=== PATIENT | female | born 1985 | race Caucasian/White ===

== ENCOUNTER 2017-08-22 06:58 | Emergency (ER) | payer OTHER, MEDICAID ==
[~2017-08-22] VITALS: Ht 162.6 cm; Wt 54.4 kg
[~2017-08-22 06:58] MED LIST: ACETAMINOPHEN-1 EAC1 PO; ACYCLOVIR 400400 M1 PO; ALBUTEROL INHAL17 GM IH; BENTYL20 MG PO; CLONAZEPAM PO; FLAGYL500 MG PO; FLEXERIL PO; IBUPROFEN 800800 MG PO; LEVAQUIN 500 M500 M2 PO; LEVAQUIN 500 M500 M3 PO; LIDOCAINE VISC100 ML MISCELL; MACROBID 100 M100 M1 PO; MEDROLDOSEPACK PO; METRONIDAZOLE500 M3 PO; NAPROSYN500 MG PO; NOHOMEMEDICATIONS; NORCO 5-325 TA1 EACH PO; NORFLEX100 MG PO; ONDANSETRON HCL4 M2 PO; ONDANSETRON HCL4 M3 PO; PAXIL PO; PERCOCET 5-3251 EACH PO; PERCOCET PO; PREDNISONE 10 M10 MG PO; PREDNISONE 20 M20 M1 PO; PRENATAL; ROBAXIN 750 MG750 M1 PO; ROBAXIN500 MG PO; TOBRADEX ST EYE5 ML; TRAZODONE; ULTRAM50 MG PO; ZOFRAN ODT4 MG PO; ZPAK PO
[2017-08-22] MEDS ORDERED: ACETAMINOPHEN-1 EAC1 PO (08:32)
[2017-08-22] MEDS ORDERED: ACYCLOVIR 400400 MG PO (08:36)
[2017-08-22] MEDS ORDERED: FAMCICLOVIR250 MG PO (08:36)
[2017-08-22 08:47] VITALS: BP 97/50
== END 2017-08-22 08:48 | disposition home or self-care (01) ==
LOC: M.ERS 06:58
DX: L02.415 Cutaneous abscess of right lower limb (principal); Z88.0 Allergy status to penicillin; Z88.1 Allergy status to other antibiotic agents; Z91.040 Latex allergy status; Z88.8 Allergy status to other drugs, medicaments and biological substances; Z90.49 Acquired absence of other specified parts of digestive tract; Z90.710 Acquired absence of both cervix and uterus; Z87.442 Personal history of urinary calculi

== ENCOUNTER 2017-08-26 17:03 | Emergency (ER) | payer OTHER, MEDICAID ==
[~2017-08-26 17:03] MED LIST changes: +ACYCLOVIR 400400 MG PO; +FAMCICLOVIR250 MG PO
[2017-08-28 21:11] LABS: HSV 1 DNA Negative (Negative); HSV 2 DNA Positive (Negative)
== END 2017-08-26 17:08 ==
LOC: M.OPS 17:03 → M.ERS 17:03 → M.OPS 17:03 → M.ERS 17:08
PROVIDERS: Emergency Medicine
DX: S31.819A Unspecified open wound of right buttock, initial encounter (principal); X58.XXXA Exposure to other specified factors, initial encounter; Y93.89 Activity, other specified; Y92.89 Other specified places as the place of occurrence of the external cause; Y99.8 Other external cause status

== ENCOUNTER 2020-03-06 17:39 | Emergency (ER) | payer OTHER, MEDICAID ==
[~2020-03-06] VITALS: Ht 162.6 cm; Wt 72.6 kg
[2020-03-06] MEDS ORDERED: ACYCLOVIR 200200 MG PO (18:44)
[2020-03-06] MEDS ORDERED: DESYREL150 MG PO (18:45)
[2020-03-06] MEDS ORDERED: CLONAZEPAM 0.50.5 M1 PO (18:46)
[2020-03-06 20:58] LABS: INFLUENZA A ANTIGEN Negative (Negative); INFLUENZA B ANTIGEN Negative (Negative)
[2020-03-06 21:45] VITALS: BP 115/70
== END 2020-03-06 21:46 | disposition home or self-care (01) ==
LOC: M.ERS 17:39
PROVIDERS: Personal Emergency Response Attendant
DX: B34.9 Viral infection, unspecified (principal); E86.0 Dehydration; M54.2 Cervicalgia; Z20.828 Contact with and (suspected) exposure to other viral communicable diseases; R19.7 Diarrhea, unspecified; R41.0 Disorientation, unspecified; J02.9 Acute pharyngitis, unspecified; Z90.49 Acquired absence of other specified parts of digestive tract; Z87.442 Personal history of urinary calculi; Z98.51 Tubal ligation status; Z79.899 Other long term (current) drug therapy; Z88.0 Allergy status to penicillin; Z88.2 Allergy status to sulfonamides; Z88.8 Allergy status to other drugs, medicaments and biological substances; Z91.040 Latex allergy status

== ENCOUNTER 2021-01-15 16:52 | Emergency (ER) | payer OTHER, MEDICAID ==
[~2021-01-15] VITALS: Ht 162.6 cm; Wt 56.7 kg
[~2021-01-15 16:52] MED LIST changes: +ACYCLOVIR 200200 MG PO; +CLONAZEPAM 0.50.5 M1 PO; +DESYREL150 MG PO
[2021-01-15 17:53] LABS: URINE BILIRUBIN NEGATIVE (Negative); URINE BLOOD NEGATIVE (Negative); URINE CLARITY CLEAR; URINE COLOR YELLOW; URINE GLUCOSE-RANDOM NEGATIVE (Negative); URINE KETONES NEGATIVE (Negative); URINE LEUKOCYTES-REFLEX NEGATIVE (Negative); URINE NITRITE-REFLEX NEGATIVE (Negative); URINE PROTEIN NEGATIVE (Negative); URINE UROBILINOGEN 0.2 E.U./dl (0.2-1.0)
[2021-01-15 20:00] LABS: ABSOLUTE BASOPHILS 0.1 thou/uL (0.0-0.2); ABSOLUTE EOSINOPHILS 0.3 thou/uL (0.0-0.7); ABSOLUTE LYMPHOCYTES 2.2 thou/uL (0.8-5.3); ABSOLUTE MONOCYTES 0.5 thou/uL (0.0-1.2); ABSOLUTE NEUTROPHILS 3.9 thou/uL (1.6-8.1); BASOPHILS 1.1 %; EOSINOPHILS 4.1 %; HEMATOCRIT 43.8 % (37.0-47.0); HEMOGLOBIN 14.7 gm/dL (12.0-15.0); LYMPHOCYTES 31.5 %; MCH 32.3 pg (26.0-34.0); MCHC 33.6 g/dL (28.0-37.0); MCV 96.1 fL (80.0-100.0); MONOCYTES 6.5 %; MPV 8.6 fl. (7.2-11.1); NUCLEATED RBCS 0 /100WBC; PLATELET COUNT* 221 thou/uL (150-400); POLYS 56.8 %; RBC 4.56 mil/uL (4.20-5.00); RDW-CV 12.6 % (10.5-14.5); WBC 6.9 thou/uL (4.0-11.0)
[2021-01-15 20:08] LABS: CALCIUM 8.8 mg/dL (8.5-10.1); CREATININE 1.1 mg/dL (0.6-1.3); POTASSIUM 3.9 mmol/L (3.5-5.1)
[2021-01-15 20:13] LABS: ALBUMIN 4.4 g/dL (3.4-5.0); TOTAL BILIRUBIN 0.4 mg/dL (<0.1-1.0); TOTAL PROTEIN 8.2 g/dL (6.4-8.2)
[2021-01-15] MEDS ORDERED: ZOFRAN ODT4 MG PO (20:25)
[2021-01-15 20:35] VITALS: BP 110/54
--- NOTE | 2021-01-16 11:45 | EKG ---
[place] [address] ELECTROCARDIOGRAM REPORT Name: MARTINEZGEORGE SANJANA Room: [facility]#: [id number] Admission: 01/15/21 Attend Phys: Discharge: 01/15/21 Date of : 81 Date of Service: 01/15/211932 Report #: [id number] THIS REPORT FOR: //name// [place] ED Test Date: 2021-01-15 Test Time: 19:33:20 Pat Name: GEORGE MARTINEZ Department: Room: Gender: F Credit Assistant: TAMIKO : 1985 Requested By: Ronaldo Mercer Order Number: [id number] MD: Anshu Gonzalez Measurements Intervals [place] Rate: 53 P: -7 ID: 106 QRS: 74 QRSD: 87 T: 31 QT: 419 QTc: 394 Interpretive Statements Sinus rhythm Short ID interval Abnormal R-wave progression, early transition Compared to ECG 05/29/2016 17:36:46 No significant changes Electronically Signed On 01-16-2021 11:45:15 CDT by Anshu Gonzalez [email or web address] <ELECTRONICALLY SIGNED> By: Anshu Gonzalez MD, FACC 01/16/21 1145 32 32 Anshu Gonzalez MD, [facility] /EPI
== END 2021-01-15 20:36 | disposition home or self-care (01) ==
LOC: M.ERS 16:52
PROVIDERS: Nurse Practitioner Family; Physician Assistant
DX: R10.9 Unspecified abdominal pain (principal); Z20.822 Contact with and (suspected) exposure to COVID-19; Z90.49 Acquired absence of other specified parts of digestive tract; Z87.442 Personal history of urinary calculi; Z90.710 Acquired absence of both cervix and uterus; Z79.899 Other long term (current) drug therapy; Z88.0 Allergy status to penicillin; Z88.2 Allergy status to sulfonamides; Z88.8 Allergy status to other drugs, medicaments and biological substances; Z88.1 Allergy status to other antibiotic agents; Z91.040 Latex allergy status

== ENCOUNTER 2021-02-12 13:58 | Emergency (ER) | payer OTHER, MEDICAID ==
[~2021-02-12] VITALS: Ht 162.6 cm; Wt 55.3 kg
[2021-02-12] MEDS ORDERED: HYDROXYZINE PAM25 M1 PO (14:15)
[2021-02-12 14:27] LABS: URINE BILIRUBIN NEGATIVE (Negative); URINE BLOOD NEGATIVE (Negative); URINE CLARITY CLEAR; URINE COLOR YELLOW; URINE GLUCOSE-RANDOM NEGATIVE (Negative); URINE KETONES NEGATIVE (Negative); URINE LEUKOCYTES-REFLEX NEGATIVE (Negative); URINE PROTEIN NEGATIVE (Negative); URINE UROBILINOGEN 0.2 E.U./dl (0.2-1.0)
[2021-02-12 14:28] LABS: URINE NITRITE-REFLEX POSITIVE (Negative)
[2021-02-12 14:39] LABS: ABSOLUTE EOSINOPHILS 0.3 thou/uL (0.0-0.7); ABSOLUTE LYMPHOCYTES 1.7 thou/uL (0.8-5.3); ABSOLUTE MONOCYTES 0.4 thou/uL (0.0-1.2); ABSOLUTE NEUTROPHILS 3.1 thou/uL (1.6-8.1); BASOPHILS 0.8 %; EOSINOPHILS 4.6 %; HEMATOCRIT 38.5 % (37.0-47.0); HEMOGLOBIN 13.1 gm/dL (12.0-15.0); LYMPHOCYTES 31.2 %; MCH 32.2 pg (26.0-34.0); MCV 94.8 fL (80.0-100.0); MONOCYTES 7.6 %; MPV 7.6 fl. (7.2-11.1); NUCLEATED RBCS 0 /100WBC; PLATELET COUNT* 227 thou/uL (150-400); POLYS 55.8 %; RBC 4.06 mil/uL (4.20-5.00); RDW-CV 12.6 % (10.5-14.5); WBC 5.5 thou/uL (4.0-11.0)
[2021-02-12 14:53] LABS: CALCIUM 8.3 mg/dL (8.5-10.1); CREATININE 0.9 mg/dL (0.6-1.3); POTASSIUM 3.5 mmol/L (3.5-5.1)
[2021-02-12 14:59] LABS: ALBUMIN 3.6 g/dL (3.4-5.0); TOTAL BILIRUBIN 0.6 mg/dL (<0.1-1.0)
[2021-02-12 14:59] LABS: CASTS None Seen /LPF (None Seen); CRYSTALS None Seen /LPF (None Seen); MUCUS None Seen strn/LPF (None Seen); SQUAMOUS 4-10 Moderate /LPF (0-3)
[2021-02-12 15:00] LABS: URINE RBC None Seen /HPF (0-2); URINE WBC-REFLEX 0-5 Rare /HPF (0-5)
--- NOTE | 2021-02-12 16:20 | EKG ---
[place] [address] ELECTROCARDIOGRAM REPORT Name: GEORGE MARTINEZ Room: [facility]#: [id number] Admission: 02/12/21 Attend Phys: Discharge: Date of : 81 Date of Service: 02/12/21 1451 Report #: [id number] THIS REPORT FOR: //name// [facility] ED Test Date: 2021-02-12 Test Time: 14:51:01 Pat Name: GEORGE MARTINEZ Department: Room: Gender: F Logistics Associate: MAVIS : 1985 Requested By: Yesi Nguyen Order Number: [id number] MD: Vu Martin Measurements Intervals [place] Rate: 68 P: 64 GA: 109 QRS: 72 QRSD: 89 T: 20 QT: 418 QTc: 445 Interpretive Statements Sinus rhythm Short GA interval RSR' in V1 or V2, probably normal variant Compared to ECG 01/15/2021 19:33:20 RSR' in V1 or V2 now present rate has increased Electronically Signed On 02-12-2021 16:20:38 CDT by Vu Martin [email or web address] <ELECTRONICALLY SIGNED> By: Vu Martin MD, FAC 02/12/21 1620 1451 1451 Vu Martin MD, [facility] /EPI
[2021-02-12] MEDS ORDERED: HYDROCODON-ACE1 EAC7 PO (16:56)
[2021-02-12] MEDS ORDERED: ZOFRAN ODT4 MG PO (17:00)
[2021-02-12] MEDS ORDERED: REGLAN 10 MG TA10 MG PO (17:00)
[2021-02-12] MEDS ORDERED: MACROBID 100 M100 M2 PO (17:00)
[2021-02-12 17:16] VITALS: BP 101/70
== END 2021-02-12 17:16 | disposition home or self-care (01) ==
LOC: M.ERS 13:58
PROVIDERS: Nurse Practitioner Family
DX: N83.202 Unspecified ovarian cyst, left side (principal); N83.201 Unspecified ovarian cyst, right side; N39.0 Urinary tract infection, site not specified; R11.2 Nausea with vomiting, unspecified; F17.210 Nicotine dependence, cigarettes, uncomplicated; Z90.49 Acquired absence of other specified parts of digestive tract; Z87.442 Personal history of urinary calculi; Z98.51 Tubal ligation status; Z90.711 Acquired absence of uterus with remaining cervical stump; Z79.899 Other long term (current) drug therapy; Z88.0 Allergy status to penicillin; Z88.2 Allergy status to sulfonamides; Z88.8 Allergy status to other drugs, medicaments and biological substances; Z91.040 Latex allergy status

== ENCOUNTER 2021-02-15 08:45 | Emergency (ER) | payer OTHER, MEDICAID ==
[~2021-02-15] VITALS: Ht 162.6 cm; Wt 59.0 kg
[~2021-02-15 08:45] MED LIST changes: +HYDROCODON-ACE1 EAC7 PO; +HYDROXYZINE PAM25 M1 PO; +MACROBID 100 M100 M2 PO; +REGLAN 10 MG TA10 MG PO
[2021-02-15 08:59] LABS: URINE BILIRUBIN NEGATIVE (Negative); URINE BLOOD NEGATIVE (Negative); URINE CLARITY CLEAR; URINE COLOR YELLOW; URINE GLUCOSE-RANDOM NEGATIVE (Negative); URINE KETONES NEGATIVE (Negative); URINE LEUKOCYTES NEGATIVE (Negative); URINE NITRITE NEGATIVE (Negative); URINE PROTEIN NEGATIVE (Negative); URINE SPECIFIC GRAVITY 1.015 (1.005-1.030); URINE UROBILINOGEN 0.2 E.U./dl (0.2-1.0)
[2021-02-15 09:18] LABS: ABSOLUTE EOSINOPHILS 0.2 thou/uL (0.0-0.7); ABSOLUTE LYMPHOCYTES 1.4 thou/uL (0.8-5.3); ABSOLUTE MONOCYTES 0.3 thou/uL (0.0-1.2); ABSOLUTE NEUTROPHILS 2.7 thou/uL (1.6-8.1); BASOPHILS 0.8 %; EOSINOPHILS 5.2 %; HEMATOCRIT 40.4 % (37.0-47.0); HEMOGLOBIN 13.5 gm/dL (12.0-15.0); LYMPHOCYTES 29.4 %; MCH 31.6 pg (26.0-34.0); MCHC 33.3 g/dL (28.0-37.0); MONOCYTES 6.9 %; NUCLEATED RBCS 0 /100WBC; PLATELET COUNT* 206 thou/uL (150-400); POLYS 57.7 %; RBC 4.26 mil/uL (4.20-5.00); RDW-CV 12.3 % (10.5-14.5); WBC 4.8 thou/uL (4.0-11.0)
[2021-02-15 09:32] LABS: CALCIUM 8.3 mg/dL (8.5-10.1); POTASSIUM 4.1 mmol/L (3.5-5.1)
[2021-02-15 09:37] LABS: ALBUMIN 3.5 g/dL (3.4-5.0); TOTAL BILIRUBIN 0.3 mg/dL (<0.1-1.0); TOTAL PROTEIN 7.1 g/dL (6.4-8.2)
[2021-02-15] MEDS ORDERED: ZOFRAN ODT4 MG PO (11:41)
[2021-02-15] MEDS ORDERED: HYDROCODON-ACE1 EA11 PO (11:41)
[2021-02-15 11:55] VITALS: BP 104/66
== END 2021-02-15 11:55 | disposition home or self-care (01) ==
LOC: M.ERS 08:45
PROVIDERS: Emergency Medicine
DX: R10.84 Generalized abdominal pain (principal); R74.01 Elevation of levels of liver transaminase levels; R11.2 Nausea with vomiting, unspecified; Z87.42 Personal history of other diseases of the female genital tract; Z90.49 Acquired absence of other specified parts of digestive tract; Z87.442 Personal history of urinary calculi; Z98.51 Tubal ligation status; Z79.899 Other long term (current) drug therapy; Z79.2 Long term (current) use of antibiotics; Z88.0 Allergy status to penicillin; Z88.2 Allergy status to sulfonamides; Z88.1 Allergy status to other antibiotic agents; Z91.040 Latex allergy status

== ENCOUNTER 2021-04-30 09:49 | Emergency (ER) | payer OTHER, MEDICAID ==
[~2021-04-30] VITALS: Ht 162.6 cm; Wt 57.6 kg
[~2021-04-30 09:49] MED LIST changes: +HYDROCODON-ACE1 EA11 PO
[2021-04-30] MEDS ORDERED: ZPAK PO (12:50)
[2021-04-30] MEDS ORDERED: TRAMADOL 50 MG50 MG PO (12:51)
== END 2021-04-30 12:17 | disposition left against medical advice (07) ==
LOC: M.ERS 09:49
DX: H66.91 Otitis media, unspecified, right ear (principal); F17.210 Nicotine dependence, cigarettes, uncomplicated; Z90.49 Acquired absence of other specified parts of digestive tract; Z87.442 Personal history of urinary calculi; Z98.51 Tubal ligation status; Z98.890 Other specified postprocedural states; Z79.899 Other long term (current) drug therapy; Z88.0 Allergy status to penicillin; Z88.2 Allergy status to sulfonamides; Z91.040 Latex allergy status; Z88.8 Allergy status to other drugs, medicaments and biological substances

== ENCOUNTER 2021-05-06 09:52 | Emergency (ER) | payer OTHER, MEDICAID ==
[~2021-05-06 09:52] MED LIST changes: +TRAMADOL 50 MG50 MG PO
== END 2021-05-06 12:03 | disposition left against medical advice (07) ==
LOC: M.ERS 09:52
DX: H90.12 Conductive hearing loss, unilateral, left ear, with unrestricted hearing on the contralateral side (principal); Z53.21 Procedure and treatment not carried out due to patient leaving prior to being seen by health care provider